=== PATIENT | male | born 1960 | race Caucasian/White ===

== ENCOUNTER → 2020-12-29 | Outpatient (CLI) | payer MEDICARE, OTHER | LOC: HEART 5 08:56 | DX: J44.9 Chronic obstructive pulmonary disease, unspecified (principal); G47.30 Sleep apnea, unspecified | CPT/HCPCS: 94060; 94729 ==

== ENCOUNTER → 2021-02-12 | Outpatient (CLI) | payer MEDICARE | LOC: RAD 12:09 | DX: R06.02 Shortness of breath (principal) | CPT/HCPCS: 71046 ==

== ENCOUNTER 2021-05-20 21:27 | Emergency (ER) | payer MEDICARE ==
[~2021-05-20] VITALS: Ht 175.3 cm; Wt 95.3 kg
[2021-05-20 23:11] LABS: HEMOGLOBIN 14.8 gm/dl (14.0-17.5); RED BLOOD COUNT 4.91 M/UL (4.20-5.50); WHITE BLOOD COUNT 9.4 K/UL (4.5-11.0)
[2021-05-20 23:38] LABS: BUN/CREATININE RATIO 18 (0-10)
[2021-05-21] MEDS ORDERED: TESSALON PERLE100 MG PO (01:57)
[2021-05-21] MEDS ORDERED: PROVENTIL HFA6.7 GM INH (01:57)
== END 2021-05-21 04:05 | disposition home or self-care (01) ==
LOC: ER1 21:27
PROVIDERS: Nurse Practitioner
DX: U07.1 COVID-19 (principal); Z23 Encounter for immunization; E78.5 Hyperlipidemia, unspecified; I10 Essential (primary) hypertension; J44.9 Chronic obstructive pulmonary disease, unspecified; Z87.442 Personal history of urinary calculi; Z79.899 Other long term (current) drug therapy
CPT/HCPCS: 71045; 80053; 81001; 82550; 82553; 83874; 84484; 85025; 87040; 96374; 96375; 99283; J1100; J1885; M0243; U0002

== ENCOUNTER → 2021-07-31 | Outpatient (CLI) | payer MEDICARE ==
[~2021-07-31] MED LIST: PROVENTIL HFA6.7 GM INH; TESSALON PERLE100 MG PO
== END ==
LOC: KOH-I 13:24
DX: R06.02 Shortness of breath (principal)
CPT/HCPCS: 71046

== ENCOUNTER → 2021-08-19 | Outpatient (CLI) | payer MEDICARE | LOC: EXRD 10:45 | DX: R06.02 Shortness of breath (principal) | CPT/HCPCS: 94060; 94729 ==

== ENCOUNTER 2022-03-09 19:26 | Emergency (ER) | payer MEDICARE ==
[2022-03-09] MEDS ORDERED: ZOFRAN ODT 4 MG4 MG SL (21:56)
[2022-03-09] MEDS ORDERED: CEPHALEXIN500 MG PO (21:56)
== END 2022-03-09 22:10 | disposition home or self-care (01) ==
LOC: ER1 19:26
DX: S06.0X9A Concussion with loss of consciousness of unspecified duration, initial encounter (principal); S02.2XXA Fracture of nasal bones, initial encounter for closed fracture; S01.81XA Laceration without foreign body of other part of head, initial encounter; Z23 Encounter for immunization; W01.10XA Fall on same level from slipping, tripping and stumbling with subsequent striking against unspecified object, initial encounter
CPT/HCPCS: 12011; 70450; 70486; 72125; 90471; 90715; 99283